=== PATIENT | male | born 1950 | race Caucasian/White ===

== ENCOUNTER 2017-08-24 21:14 | Emergency (ER) | payer OTHER ==
[2017-08-24] MEDS ORDERED: METOPROLOL TART25 M1 PO (21:30)
[2017-08-24] MEDS ORDERED: ATORVASTATIN CA40 M1 PO (21:30)
[2017-08-24] MEDS ORDERED: IRON325 M3 PO (21:31)
[2017-08-24] MEDS ORDERED: BAYER CHEWABLE81 MG PO (21:31)
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
[2017-08-25 01:46] VITALS: BP 126/68
== END 2017-08-25 01:46 ==
LOC: ERH 21:14
DX: S09.90XA Unspecified injury of head, initial encounter (principal); S01.112A Laceration without foreign body of left eyelid and periocular area, initial encounter; W01.0XXA Fall on same level from slipping, tripping and stumbling without subsequent striking against object, initial encounter; Y92.009 Unspecified place in unspecified non-institutional (private) residence as the place of occurrence of the external cause; Y93.9 Activity, unspecified; I10 Essential (primary) hypertension; E78.00 Pure hypercholesterolemia, unspecified
CPT/HCPCS: 90471; 90714